=== PATIENT | male | born 1995 | race Caucasian/White ===

== ENCOUNTER 2020-01-29 02:35 | Emergency (ER) | payer SELFPAY ==
[~2020-01-29] VITALS: Ht 180.3 cm; Wt 86.2 kg
[2020-01-29 02:44] VITALS: BP 118/81
[2020-01-29 02:55] VITALS: BP 118/81
--- NOTE | 2020-01-29 02:55 | NUR ---
Patient discharged with v/s stable. Written and verbal after care instructions given and explained. Patient verbalized understanding. ESCORTED BY PD [place] in custody. All questions addressed prior to discharge. Advised to follow up with PMD.
--- NOTE | 2020-01-29 02:55 | NUR ---
PT ASSESSMENT COMPLETED BY DR. FERNANDES, NO NURSING INTERVENTIONS NEEDED AT THIS TIME.
== END 2020-01-29 02:55 ==
LOC: MED 02:35
DX: R51 Headache (principal); Z02.89 Encounter for other administrative examinations
CPT/HCPCS: 99283